=== PATIENT | female | born 2000 | race Caucasian/White ===

== ENCOUNTER 2020-08-12 23:12 | Emergency (ER) | payer SELFPAY ==
--- NOTE | 2020-08-13 00:14 | EDM.PDOC ---
ED HPI GENERAL MEDICAL PROBLEM - General Chief Complaint: CORE MOUNTER Problem Stated Complaint: 11 WEEKS PREG AND BLEEDING Time Seen by Provider: 08/13/20 00:13 - History of Present Illness INITIAL COMMENTS - FREE TEXT/NARRATIVE: 20-year-old female who is developed some spotting today. Around 5:00 this evening when the patient wiped she noticed some blood on it this happened again around 8:00. She is not sure if it is vaginal or coming in her urine. Patient believes she is about 11 weeks she has not had care yet. She is not had any fevers or chills no burning or frequency with urination. She is a 1 para 0. She has some lower abdominal pressure but no cramping. Lower Abdomen Pain Score (Numeric/FACES): 2 - Related Data Allergies Allergy/AdvReac Type Severity Reaction Status Date / Time Penicillins Allergy Hives Verified 08/12/20 23:26 sulfamethoxazole Allergy Hives Verified 08/12/20 23:26 [From Bactrim] trimethoprim [From Bactrim] Allergy Hives Verified 08/12/20 23:26 Home Meds: Home Meds . [No Known Home Meds] 08/12/20 [History] Past Medical History - Past Health History Medical/Surgical History: Denies Medical/Surgical History Respiratory History: Reports: Asthma CORE MOUNTER History: Reports: Other CORE MOUNTER History: Social & Family History - Tobacco Use Tobacco Use Status *Q: Unknown Ever Used Tobacco ED ROS GENERAL - Review of Systems Review Of Systems: See Below Constitutional: Reports: No Symptoms Respiratory: Reports: No Symptoms Cardiovascular: Reports: No Symptoms GI/Abdominal: Reports: Abdominal Pain (Lower abdominal pressure). Denies: Constipation, Diarrhea, Nausea, Vomiting : Reports: No Symptoms, Other (She has some bleeding is unclear from where) Musculoskeletal: Reports: No Symptoms ED EXAM, GENERAL - Physical Exam Exam: See Below Exam Limited By: No Limitations General Appearance: Alert, No Apparent Distress Head: Atraumatic, Normocephalic Neck: Normal Inspection, Supple, Non-Tender, Full Range of Motion Respiratory/Chest: No Respiratory Distress, Lungs Clear, Normal Breath Sounds Cardiovascular: Regular Rate, Rhythm, No Edema, No Murmur GI/Abdominal: Normal Bowel Sounds, Soft, Non-Tender, Other (I did not find heart tones.) (Female) Exam: Normal External Exam, Normal Speculum Exam, Normal Bimanual Exam, Other (After careful exam I cannot find any evidence of bleeding) Course - Vital Signs Last Recorded V/S: Last Vital Signs Temp 36.6 C 08/12/20 23:26 Pulse 84 08/12/20 23:26 Resp 15 08/12/20 23:26 BP 128/86 08/12/20 23:26 Pulse Ox 100 08/12/20 23:26 - Orders/Labs/Meds Orders: Active Orders 24 hr Category Date Time Status Pelvic Exam, Set Up [RC] ASDIRECTED Care 08/13/20 00:46 Active OB 1st Tri Sgl 1st Gest [US] Stat Exams 08/13/20 01:05 Taken PATIENT RETYPE [BBK] Routine Lab 08/13/20 01:22 Ordered Labs: Laboratory Tests 08/13/20 08/13/20 08/13/20 Range/Units 00:28 00:28 00:28 WBC 6.87 (3.98-10.04) K/mm3 RBC 4.07 (3.98-5.22) M/mm3 Hgb 11.5 (11.2-15.7) gm/dl Hct 34.1 (34.1-44.9) % MCV 83.8 (79.4-94.8) fl MCH 28.3 (25.6-32.2) pg MCHC 33.7 (32.2-35.5) g/dl RDW Std Deviation 40.6 (36.4-46.3) fL Plt Count 258 (182-369) K/mm3 MPV 10.1 (9.4-12.3) fl Neut % (Auto) 65.1 (34.0-71.1) % Lymph % (Auto) 24.0 (19.3-51.7) % [place] % (Auto) 9.6 (4.7-12.5) % Eos % (Auto) 0.9 (0.7-5.8) Baso % (Auto) 0.3 (0.1-1.2) % Neut # (Auto) 4.47 (1.56-6.13) K/mm3 Lymph # (Auto) 1.65 (1.18-3.74) K/mm3 [place] # (Auto) 0.66 H (0.24-0.36) K/mm3 Eos # (Auto) 0.06 (0.04-0.36) K/mm3 Baso # (Auto) 0.02 (0.01-0.08) K/mm3 HCG, Qual Positive H (NEGATIVE) HCG, Quant mIU/mL Urine Color (Yellow) Urine Appearance (Clear) Urine pH (5.0-8.0) Ur Specific [place] (1.005-1.030) Urine Protein (Negative) Urine Glucose (UA) (Negative) Urine Ketones (Negative) Urine Occult Blood (Negative) Urine Nitrite (Negative) Urine Bilirubin (Negative) Urine Urobilinogen (0.2-1.0) Ur Leukocyte Esterase (Negative) Urine RBC (0-5) /hpf Urine WBC (0-5) /hpf Ur Squamous Epith Cells (0-5) /hpf Urine Bacteria (FEW) /hpf Urine Mucus (FEW) /hpf Blood Type A POSITIVE Gel Antibody Screen Negative 08/13/20 08/13/20 Range/Units 00:28 01:03 WBC (3.98-10.04) K/mm3 RBC (3.98-5.22) M/mm3 Hgb (11.2-15.7) gm/dl Hct (34.1-44.9) % MCV (79.4-94.8) fl MCH (25.6-32.2) pg MCHC (32.2-35.5) g/dl RDW Std Deviation (36.4-46.3) fL Plt Count (182-369) K/mm3 MPV (9.4-12.3) fl Neut % (Auto) (34.0-71.1) % Lymph % (Auto) (19.3-51.7) % [place] % (Auto) (4.7-12.5) % Eos % (Auto) (0.7-5.8) Baso % (Auto) (0.1-1.2) % Neut # (Auto) (1.56-6.13) K/mm3 Lymph # (Auto) (1.18-3.74) K/mm3 [place] # (Auto) (0.24-0.36) K/mm3 Eos # (Auto) (0.04-0.36) K/mm3 Baso # (Auto) (0.01-0.08) K/mm3 HCG, Qual (NEGATIVE) HCG, Quant 836493.0 mIU/mL Urine Color Yellow (Yellow) Urine Appearance Clear (Clear) Urine pH 6.0 (5.0-8.0) Ur Specific [place] > or = 1.030 (1.005-1.030) Urine Protein 1+ H (Negative) Urine Glucose (UA) Negative (Negative) Urine Ketones 3+ H (Negative) Urine Occult Blood Negative (Negative) Urine Nitrite Negative (Negative) Urine Bilirubin Negative (Negative) Urine Urobilinogen 1.0 (0.2-1.0) Ur Leukocyte Esterase Negative (Negative) Urine RBC Not seen (0-5) /hpf Urine WBC Not seen (0-5) /hpf Ur Squamous Epith Cells 0-5 (0-5) /hpf Urine Bacteria Few (FEW) /hpf Urine Mucus Many H (FEW) /hpf Blood Type Gel Antibody Screen - Re-Assessments/Exams Free Text/Narrative Re-Assessment/Exam: 08/13/20 01:04 Pelvic examination shows no evidence of any bleeding we will go ahead and check an ultrasound awaiting quantitative hCG 08/13/20 03:10 Ultrasound shows a single live intrauterine gestation with a heart rate of 161 gestational age 10 weeks 4 days with a due date of 1222. There is a subchorionic hemorrhage that measures 1.4 x 0.7 x 0.7 cm. Blood type is A positive Departure - Departure Time of Disposition: 03:12 Disposition: Home, Self-Care 01 Clinical Impression: First trimester bleeding - Discharge Information Referrals: PCP,Not In Area [Primary Care Provider] - Steven Kendall MD [Physician] - Forms: ED Department Discharge Additional Instructions: Return to the emergency room with any questions problems or worsening symptoms. No heavy lifting or exertion no intercourse. Do not lift anything over 10 pounds. Allow yourself to get plenty of rest. Drink plenty of fluids. [facility] the hospital this next week for recheck. Sepsis Event Note (ED) - Evaluation Sepsis Screening Result: No Definite Risk - Focused Exam Vital Signs: Vital Signs Temp Pulse Resp BP Pulse Ox 08/12/20 23:26 36.6 C 84 15 128/86 100 - My Orders Last 24 Hours: My Active Orders 08/13/20 00:46 Pelvic Exam, Set Up [RC] ASDIRECTED 08/13/20 01:05 OB 1st Tri Sgl 1st Gest [US] Stat 08/13/20 01:22 PATIENT RETYPE [BBK] Routine - Assessment/Plan Last 24 Hours: My Active Orders 08/13/20 00:46 Pelvic Exam, Set Up [RC] ASDIRECTED 08/13/20 01:05 OB 1st Tri Sgl 1st Gest [US] Stat 08/13/20 01:22 PATIENT RETYPE [BBK] Routine
--- NOTE | 2020-08-13 18:24 | US ---
First trimester obstetrical ultrasound: Multiple real-time images were obtained transabdominally. Comparison: No prior obstetrical imaging is available. Dates: Current ultrasound: BELINDA 01/05/21, gestational age of 10 weeks 4 days Single intrauterine gestational sac is seen. Embryo is noted within this gestational sac. Small subchorionic hemorrhage is noted. Right and left maternal ovaries appear within normal limits. Measurements: Orwin-rump length: 3.64 cm - 10 weeks 4 days Heart rate: 161 bpm Impression: 1. Single intrauterine gestation. Dates as noted above. 2. Minimal subchorionic hemorrhage. 3. No other acute abnormality is appreciated. Diagnostic code #2 I agree with preliminary report from [facility], finalized on 08/13/20, 3:22 AM CDT, code 1
== END 2020-08-13 03:30 | disposition home or self-care (01) ==
LOC: JD.ED 23:12
DX: O20.9 Hemorrhage in early pregnancy, unspecified (principal); Z88.0 Allergy status to penicillin; Z88.1 Allergy status to other antibiotic agents; Z3A.11 11 weeks gestation of pregnancy
CPT/HCPCS: 36415; 76801; 76801-26; 81001; 84702; 84703; 85025; 86850; 86900; 86901; 99283; 99284-25

== ENCOUNTER 2020-10-07 15:38 | Emergency (ER) | payer SELFPAY ==
[2020-10-07] MEDS ORDERED: Acetaminophen 325 MG Tab PO ONE (16:22)
--- NOTE | 2020-10-07 17:53 | EDM.PDOC ---
ED HPI GENERAL MEDICAL PROBLEM - General Chief Complaint: Abdominal Pain Stated Complaint: RT SIDE PAIN IN LEGS AND BACK, 19 WKS Time Seen by Provider: 10/07/20 15:55 Source of Information: Reports: Patient, RN Notes Reviewed - History of Present Illness INITIAL COMMENTS - FREE TEXT/NARRATIVE: 20 yr old female comes in with R back and flank pain with some radiation down the R leg. She is at about 19 weeks. No known injury. Has had some vomiting off and on, otherwise has been going OK. No voiding sx. Right Lower Abdomen Pain Score (Numeric/FACES): 8 - Related Data Allergies Allergy/AdvReac Type Severity Reaction Status Date / Time azithromycin Allergy Severe Anaphylactic Verified 10/07/20 15:55 Shock Penicillins Allergy Severe Hives Verified 10/07/20 15:55 sulfamethoxazole Allergy Severe Hives Verified 10/07/20 15:55 [From Bactrim] trimethoprim [From Bactrim] Allergy Severe Hives Verified 10/07/20 15:55 Home Meds: Home Meds ondansetron HCL [Zofran] 4 mg PO Q6H PRN 10/07/20 [History] Past Medical History - Past Health History Medical/Surgical History: Denies Medical/Surgical History Respiratory History: Reports: Asthma SYSTEM ARCHITECT History: Reports: Other SYSTEM ARCHITECT History: Endocrine/Metabolic History: Reports: Obesity/BMI 30+ Social & Family History - Tobacco Use Tobacco Use Status *Q: Never Tobacco User - Caffeine Use Caffeine Use: Reports: None - Recreational Drug Use Recreational Drug Use: No ED ROS GENERAL - Review of Systems Review Of Systems: See Below Constitutional: Denies: Fever, Chills HEENT: Reports: No Symptoms Respiratory: Reports: No Symptoms Cardiovascular: Reports: No Symptoms GI/Abdominal: Reports: Nausea, Vomiting Musculoskeletal: Reports: Back Pain, Leg Pain Skin: Reports: No Symptoms Neurological: Denies: Numbness, Tingling ED EXAM - Physical Exam Exam: See Below General Appearance: Alert, Mild Distress Throat/Mouth: Normal Inspection Respiratory/Chest: No Respiratory Distress, Lungs Clear, Normal Breath Sounds Cardiovascular: Regular Rate, Rhythm GI/Abdominal Exam: Soft, Non-Tender. No: Guarding Heart Tones: Present Heart Tones per Min: 144 Back Exam: Other (mild tenderness R low back). No: CVA Tenderness (L), CVA Tenderness (R) Extremities: Other (RLE not swollen). No: Pedal Edema, Leg Pain, Increased Warmth, Redness Neurological: Alert, Oriented, No Motor/Sensory Deficits Skin Exam: Warm, Dry, Normal Color Course - Vital Signs Last Recorded V/S: Last Vital Signs Temp 96.7 F L 10/07/20 15:51 Pulse 86 10/07/20 15:51 Resp 16 10/07/20 15:51 BP 108/76 10/07/20 15:51 Pulse Ox 100 10/07/20 15:51 - Orders/Labs/Meds Labs: Laboratory Tests 10/07/20 10/07/20 Range/Units 16:40 17:25 WBC 6.76 (3.98-10.04) K/mm3 RBC 4.00 (3.98-5.22) M/mm3 Hgb 11.2 (11.2-15.7) gm/dl Hct 34.2 (34.1-44.9) % MCV 85.5 (79.4-94.8) fl MCH 28.0 (25.6-32.2) pg MCHC 32.7 (32.2-35.5) g/dl RDW Std Deviation 43.4 (36.4-46.3) fL Plt Count 270 (182-369) K/mm3 MPV 9.9 (9.4-12.3) fl Neut % (Auto) 71.3 H (34.0-71.1) % Lymph % (Auto) 18.9 L (19.3-51.7) % [place] % (Auto) 8.1 (4.7-12.5) % Eos % (Auto) 1.5 (0.7-5.8) Baso % (Auto) 0.1 (0.1-1.2) % Neut # (Auto) 4.81 (1.56-6.13) K/mm3 Lymph # (Auto) 1.28 (1.18-3.74) K/mm3 [place] # (Auto) 0.55 H (0.24-0.36) K/mm3 Eos # (Auto) 0.10 (0.04-0.36) K/mm3 Baso # (Auto) 0.01 (0.01-0.08) K/mm3 Urine Color Yellow (Yellow) Urine Appearance Clear (Clear) Urine pH 7.0 (5.0-8.0) Ur Specific [place] 1.025 (1.005-1.030) Urine Protein Negative (Negative) Urine Glucose (UA) Negative (Negative) Urine Ketones Negative (Negative) Urine Occult Blood Negative (Negative) Urine Nitrite Negative (Negative) Urine Bilirubin Negative (Negative) Urine Urobilinogen 0.2 (0.2-1.0) Ur Leukocyte Esterase Negative (Negative) Meds: Medications Discontinued Medications Generic Name Dose Route Start Last Admin Trade Name Shahzad PRN Reason Stop Dose Admin Acetaminophen 325 mg 10/07/20 16:22 10/07/20 16:34 Acetaminophen 325 Mg Tab PO 10/07/20 16:23 81.25 mg NOW ONE Administration - Re-Assessments/Exams Free Text/Narrative Re-Assessment/Exam: 10/07/20 17:53 WBC nl, UA nl. She was worried about tylenol allergy due to waking up feeling throat tightness about 6 yrs ago after taking tylneol for an injury. Has never taken it since that time. Usually takes aleve for discomfort but now with her that is not going to be a good idea. Departure - Departure Time of Disposition: 18:03 Disposition: Home, Self-Care 01 Condition: Fair Clinical Impression: Second trimester Back pain Qualifiers: Back pain location: low back pain Chronicity: acute Back pain laterality: right Sciatica presence: without sciatica Qualified Code(s): M54.5 - Low back pain - Discharge Information Instructions: Back Pain in Referrals: Rosette Ellington MD [Primary Care Provider] - Forms: ED Department Discharge Additional Instructions: Gradually increase your dose of tylenol as discussed. Start with a half 500 mg tablet 2 to 3 times daily and than increase to 500 mg 3 to 4 times daily as needed. Altenate ice and heat as needed. Avoid heavy lifting for now. See Dr Ellington in about 2 weeks as planned. You may see one of the other providers as needed if back pain not resolving as expected. Sepsis Event Note (ED) - Evaluation Sepsis Screening Result: No Definite Risk - Focused Exam Vital Signs: Vital Signs Temp Pulse Resp BP Pulse Ox 10/07/20 15:51 96.7 F L 86 16 108/76 100
== END 2020-10-07 18:20 | disposition home or self-care (01) ==
LOC: JD.ED 15:38
DX: O99.891 Other specified diseases and conditions complicating pregnancy (principal); O99.212 Obesity complicating pregnancy, second trimester; M54.5 Low back pain; Z88.0 Allergy status to penicillin; Z88.1 Allergy status to other antibiotic agents; Z3A.19 19 weeks gestation of pregnancy
CPT/HCPCS: 36415; 81003; 85025; 99284; A9270; 99283

== ENCOUNTER 2020-10-13 11:51 | Emergency (ER) | payer SELFPAY ==
--- NOTE | 2020-10-13 14:44 | EDM.PDOC ---
ED HPI GENERAL MEDICAL PROBLEM - General Chief Complaint: Respiratory Problem Stated Complaint: SOB/19 WKS PG Time Seen by Provider: 10/13/20 12:13 Source of Information: Reports: Patient History Limitations: Reports: No Limitations - History of Present Illness INITIAL COMMENTS - FREE TEXT/NARRATIVE: The patient presents with a sore throat and trouble breathing. She said the s ore throat started yesterday. Today she was at work and had trouble breathing. She is anxious when she came in. She does have a slight cough. She is 19 weeks gestation. She has no cramping, vaginal bleeding or discharge. Onset: Gradual Duration: Day(s): Location: Reports: Other Quality: Reports: Sharp Severity: Moderate Improves with: Reports: None Worsens with: Reports: None Associated Symptoms: Reports: Cough. Denies: Chest Pain, Fever/Chills, Headaches, Nausea/Vomiting, Shortness of Breath Throat Pain Score (Numeric/FACES): 8 - Related Data Allergies Allergy/AdvReac Type Severity Reaction Status Date / Time azithromycin Allergy Severe Anaphylactic Verified 10/13/20 12:15 Shock Penicillins Allergy Intermediate Hives Verified 10/13/20 12:15 sulfamethoxazole Allergy Intermediate Hives Verified 10/13/20 12:15 [From Bactrim] trimethoprim [From Bactrim] Allergy Intermediate Hives Verified 10/13/20 12:15 Home Meds: Home Meds ondansetron HCL [Zofran] 4 mg PO Q6H PRN 10/07/20 [History] Past Medical History - Past Health History Medical/Surgical History: Denies Medical/Surgical History Respiratory History: Reports: Asthma 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 Denies: Shortness of Breath Cardiovascular: Reports: No Symptoms Endocrine: Reports: No Symptoms GI/Abdominal: Reports: No Symptoms : Reports: No Symptoms Musculoskeletal: Reports: No Symptoms ED EXAM, GENERAL - Physical Exam Exam: See Below Exam Limited By: No Limitations General Appearance: Alert, No Apparent Distress Ears: Normal External Exam Nose: Normal Inspection Throat/Mouth: Other (Erythema and edema to the oropharynx) Head: Atraumatic, Normocephalic Neck: Normal Inspection Respiratory/Chest: No Respiratory Distress, Lungs Clear, Normal Breath Sounds Cardiovascular: Regular Rate, Rhythm, No Edema, No Murmur GI/Abdominal: Soft, Non-Tender, No Organomegaly, No Mass Back Exam: Normal Inspection Extremities: Normal Inspection Course - Vital Signs Last Recorded V/S: Last Vital Signs Temp 98.3 F 10/13/20 12:12 Pulse 97 10/13/20 12:12 Resp 28 H 10/13/20 12:12 BP 111/79 10/13/20 12:12 Pulse Ox 100 10/13/20 12:12 - Orders/Labs/Meds Labs: Laboratory Tests 10/13/20 Range/Units 12:10 Group A Strep (PCR) Not detected (NOT DETECT) - Re-Assessments/Exams Free Text/Narrative Re-Assessment/Exam: 10/13/20 14:43 I ordered a rapid strep and it was negative. I did want to check her for COVID but she refused. Departure - Departure Time of Disposition: 14:45 Disposition: Home, Self-Care 01 Condition: Good Clinical Impression: Viral pharyngitis, Viral URI - Discharge Information *PRESCRIPTION DRUG MONITORING PROGRAM REVIEWED*: Not Applicable *COPY OF PRESCRIPTION DRUG MONITORING REPORT IN PATIENT MELISSA: Not Applicable Referrals: Rosette Ellington MD [Primary Care Provider] - 1 Week Forms: ED Department Discharge, ED Return to Work/School Form Additional Instructions: Drink plenty of fluids. Take tylenol as needed for fever or pain. Follow up with Dr Ellington within a week. Please return if you are worse. Sepsis Event Note (ED) - Evaluation Sepsis Screening Result: Possible Sepsis Risk - Focused Exam Vital Signs: Vital Signs Temp Pulse Resp BP Pulse Ox 10/13/20 12:12 98.3 F 97 28 H 111/79 100
== END 2020-10-13 14:50 | disposition home or self-care (01) ==
LOC: JD.ED 11:51
DX: O99.512 Diseases of the respiratory system complicating pregnancy, second trimester (principal); O99.212 Obesity complicating pregnancy, second trimester; J02.8 Acute pharyngitis due to other specified organisms; Z88.1 Allergy status to other antibiotic agents; Z88.0 Allergy status to penicillin; Z3A.19 19 weeks gestation of pregnancy
CPT/HCPCS: 87651-QW; 99282; 99283

== ENCOUNTER 2020-12-01 20:03 | Emergency (ER) | payer BC, OTHER ==
--- NOTE | 2020-12-01 20:47 | EDM.PDOC ---
ED HPI GENERAL MEDICAL PROBLEM - General Chief Complaint: Upper Extremity Injury/Pain Stated Complaint: TRIPPED & INJURED RIGHT WRIST AT WORK Time Seen by Provider: 12/01/20 20:19 Source of Information: Reports: Patient History Limitations: Reports: No Limitations - History of Present Illness INITIAL COMMENTS - FREE TEXT/NARRATIVE: Patient is a 20-year-old female who is 26 weeks who while at work today was bumped into and she caught herself falling injuring her right wrist. Patient denies any other injuries and no other complaints. She has never previously injured the wrist and taken nothing for her pain currently. Onset: Today, Sudden Duration: Constant Location: Reports: Upper Extremity, Right Quality: Reports: Ache Severity: Moderate Improves with: Reports: Cold Therapy Worsens with: Reports: Movement Context: Reports: Trauma Right Wrist Pain Score (Numeric/FACES): 5 - Related Data Allergies Allergy/AdvReac Type Severity Reaction Status Date / Time azithromycin Allergy Severe Anaphylactic Verified 12/01/20 20:31 Shock Penicillins Allergy Intermediate Hives Verified 12/01/20 20:31 sulfamethoxazole Allergy Intermediate Hives Verified 12/01/20 20:31 [From Bactrim] trimethoprim [From Bactrim] Allergy Intermediate Hives Verified 12/01/20 20:31 Home Meds: Home Meds . 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 Constitutional: Reports: No Symptoms Respiratory: Reports: No Symptoms Cardiovascular: Reports: No Symptoms Musculoskeletal: Reports: Arm Pain Skin: Reports: No Symptoms Neurological: Reports: No Symptoms ED EXAM, GENERAL - Physical Exam Exam: See Below Exam Limited By: No Limitations General Appearance: Alert, No Apparent Distress Head: Atraumatic Neck: Supple Respiratory/Chest: No Respiratory Distress GI/Abdominal: Non-Tender Extremities: Joint Swelling, Other (Pain and swelling right wrist consistent with fracture.) Neurological: Alert, Oriented Skin Exam: Warm, Dry Lymphatic: No Adenopathy Course - Vital Signs Text/Narrative:: X-ray of her right wrist shows a fracture through the hamate bone. Patient will be put in a splint and given some [place] as needed for pain otherwise she can just take Tylenol. She will call orthopedic provider tomorrow or on Friday to make an appointment to be casted. She is to use elevation ice as long as wrist is swollen. Last Recorded V/S: Last Vital Signs Temp 97.4 F 12/01/20 20:29 Pulse 89 12/01/20 20:29 Resp 20 12/01/20 20:29 BP 106/80 12/01/20 20:29 Pulse Ox 98 12/01/20 20:29 - Orders/Labs/Meds Orders: Active Orders 24 hr Category Date Time Status Splinting [RC] ASDIRECTED Care 12/01/20 21:43 Ordered Wrist Comp Min 3V Rt [CR] Stat Exams 12/01/20 20:43 Taken Departure - Departure Time of Disposition: 21:45 Disposition: Home, Self-Care 01 Condition: Good Clinical Impression: Closed hamate fracture - Discharge Information *PRESCRIPTION DRUG MONITORING PROGRAM REVIEWED*: No Instructions: Wrist Fracture Treated With Immobilization, [id number] Referrals: Rosette Ellington MD [Primary Care Provider] - Jason Nava MD [Physician] - Forms: ED Department Discharge, ED Return to Work/School Form Additional Instructions: Elevation and splint until seen by orthopedic provider for casting. [place] if needed otherwise Tylenol for pain. Return to ER symptoms are worse. Sepsis Event Note (ED) - Focused Exam Vital Signs: Vital Signs Temp Pulse Resp BP Pulse Ox 12/01/20 20:29 97.4 F 89 20 106/80 98 - My Orders Last 24 Hours: My Active Orders 12/01/20 20:43 Wrist Comp Min 3V Rt [CR] Stat 12/01/20 21:43 Splinting [RC] ASDIRECTED - Assessment/Plan Last 24 Hours: My Active Orders 12/01/20 20:43 Wrist Comp Min 3V Rt [CR] Stat 12/01/20 21:43 Splinting [RC] ASDIRECTED
--- NOTE | 2020-12-02 07:42 | CR ---
Right wrist: 4 views centered to the right wrist were obtained. Comparison: No previous wrist study is available. Joint spaces within the right wrist are preserved. No fracture, dislocation or other bony abnormality is seen. Impression: 1. No acute abnormality is appreciated on right wrist exam. Diagnostic code #1
== END 2020-12-01 22:05 | disposition home or self-care (01) ==
LOC: JD.ED 20:03
DX: O9A.23 Injury, poisoning and certain other consequences of external causes complicating the puerperium (principal); S62.141A Displaced fracture of body of hamate [unciform] bone, right wrist, initial encounter for closed fracture; Z88.1 Allergy status to other antibiotic agents; Z88.0 Allergy status to penicillin; Z3A.26 26 weeks gestation of pregnancy; Y99.0 Civilian activity done for income or pay; W18.09XA Striking against other object with subsequent fall, initial encounter
CPT/HCPCS: 73110-26-RT; 73110-RT; 99283; 99283-25

== ENCOUNTER 2021-02-16 06:21 | Inpatient (IN) | payer BC ==
[2021-02-16] MEDS ORDERED: Calcium Carbonate 500 MG Tab.Chew PO PRN (07:54)
[2021-02-16] MEDS ORDERED: Ondansetron 4 MG/2 ML SDV IVPUSH PRN (07:54)
[2021-02-16] MEDS ORDERED: Nalbuphine 10 MG/1 ML Vial IVPUSH PRN (07:54)
[2021-02-16] MEDS ORDERED: Sodium Chloride 0.9% 10 ML Syringe FLUSH PRN (07:54)
[2021-02-16] MEDS ORDERED: Oxytocin/Lactated Ringers 10 UNIT/1,000 ML BAG IV SCH ×3 (08:00→23:10)
--- NOTE | 2021-02-16 09:13 | PCM.LDHP ---
<RakelCris shoemaker L - Last Filed: 02/16/21 09:43> L&D History of Present Illness - General Date of Service: 02/16/21 Admit Problem/Dx: Patient Status Order with Admit Dx/Problem 02/16/21 06:28 Patient Status [ADT] Routine 02/16/21 07:54 Patient Status [ADT] Routine Admission Diagnosis/Problem Admission Diagnosis/Problem Source of Information: Patient History Limitations: Reports: No Limitations - History of Present Illness Introduction:: Jina Kaplan is a 20yo white female at 37 2/7 weeks with an BELINDA of 03/07/2021 based on ultrasound admitted on the a.m. of 02/16/2021 for SROM and in early labor. HPI: Jina Kaplan is a 20yo white female at 37 2/7 weeks with an BELINDA of 03/07/2021 based on ultrasound admitted on the a.m. of 02/16/2021 for SROM and in early labor. She felt multiple gushes followed by leakage of clear fluid at 0555 this morning which prompted presentation to L&D. She reports no contractions at that time, but is starting to have irregularly timed contractio ns. She is GBS- and denies any other concerns today. 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 Periods were regular prior to conception. Her due date of 03/07/2021 is based on ultrasound on 08/13/2020. course: Patient was initially seen with this at 11 2/7 weeks on 08/18/2020 and was seen on a regular basis throughout the . Fundal height growth has been appropriate throughout the . Weight has been 197lbs to 214lbs for an increase of 17lbs for the . She received Tdap and influenza immunizations on 01/18/2021. She refused COVID-19 vaccination. First trimester labs showed A+ blood type with negative antibodies, Hgb 13.1g/dL, platelets 268,000. She is rubella immune. Urine culture was negative. HBsAg, HCV, HIV, RPR, gonorrhea, chlamydia all negative. Second trimester labs showed A+ blood type with negative antibodies, Hgb 11.0g/dL, platelets 282,000. 1hr glucose 73mg/dL. RPR on 11/14/2020 was nonreactive. GBS-. Allergies: Azithromycin - severe, Penicillins - severe, trimethoprim- sulfamethoxazole - severe, avocado Medications: Zofran 4mg q6hr PRN, vitamin PMH: She denies any medical problems. Surgical Hx: She denies any surgical history. She had her first period at 12yo and has had regular periods prior to conception. She denies prior . FHx: No pertinent family history. SHx: Denies drug, alcohol and tobacco use. Boyfriend and FOB is Filipe. 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 ROS: In general patient is feeling well with mild pain with contractions. Reports good activity. HEENT: denies Breast: denies Pulm: denies SOB CV: denies chest pain GI: denies abdominal pain, nausea, vomiting, diarrhea, constipation : denies Neuro: denies headache Psych: denies depression, anxiety, mood changes Skin: denies PE: In general, patient is a well-nourished, well-developed, pleasant female in no acute distress. 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 Jina Kaplan is a 20yo white female at 37 2/7 weeks with an BELINDA of 03/07 based on ultrasound admitted on the a.m. of 02/16/2021 for SROM and in early labor. 2. GBS -. RPR is nonreactive. Rubella immune. Received Tdap and flu vaccines, not COVID-19. 3. Does not desire epidural in labor 4. Plans to breastfeed Plan: 1. Proceed with with routine labor care 2. Continuous monitoring of heart tones 3. No epidural in labor 4. Support plans to breastfeed KB MS3 - Related Data Allergies/Adverse Reactions: Allergies Allergy/AdvReac Type Severity Reaction Status Date / Time azithromycin Allergy Severe Anaphylactic Verified 01/30/21 21:16 Shock Penicillins Allergy Intermediate Hives Verified 11/16/21 21:16 sulfamethoxazole Allergy Intermediate Hives Verified 01/30/21 21:16 [From Bactrim] trimethoprim [From Bactrim] Allergy Intermediate Hives Verified 01/30/21 21:16 Home Medications: Home Meds Ondansetron [Zofran ODT] 4 mg PO Q6H PRN #30 tab.dis 01/30/21 [Rx] No122/Iron/Folic Acid [ Multi Tablet] 1 each PO DAILY 01/30/21 [History] Past Medical History - Past Health History Medical/Surgical History: Denies Medical/Surgical History Respiratory History: Reports: 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 L&D Exam - Exam Exam: See Below - Vital Signs Weight: 96.388 kg - Exam General: Alert, Oriented HEENT: Conjunctiva Clear, EOMI, Hearing Intact, Mucosa Moist & [place] Lungs: Clear to Auscultation, Normal Respiratory Effort Cardiovascular: Regular Rate, Regular Rhythm, Normal S1, Normal S2 GI/Abdominal Exam: Normal Bowel Sounds, Soft, Non-Tender Rectal Exam: Deferred Genitourinary: Deferred Back Exam: Normal Inspection, Full Range of Motion Extremities: Normal Inspection, Normal Range of Motion, Non-Tender, No Pedal Edema, Normal Capillary Refill Skin: Warm, Dry, Intact Neurological: Cranial Nerves Intact Psychiatric: Alert, Normal Affect, Normal Mood - Patient Data Lab Results Last 24 hrs: Laboratory Results - last 24 hr 02/16/21 02/16/21 02/16/21 Range/Units 06:40 08:06 08:06 WBC 8.45 (3.98-10.04) K/mm3 RBC 3.97 L (3.98-5.22) M/mm3 Hgb 11.2 (11.2-15.7) gm/dl Hct 34.2 (34.1-44.9) % MCV 86.1 (79.4-94.8) fl MCH 28.2 (25.6-32.2) pg MCHC 32.7 (32.2-35.5) g/dl RDW Std Deviation 41.8 (36.4-46.3) fL Plt Count 263 (182-369) K/mm3 MPV 9.8 (9.4-12.3) fl Neut % (Auto) 75.8 H (34.0-71.1) % Lymph % (Auto) 15.7 L (19.3-51.7) % Crisp % (Auto) 7.2 (4.7-12.5) % Eos % (Auto) 1.1 (0.7-5.8) Baso % (Auto) 0.2 (0.1-1.2) % Neut # (Auto) 6.40 H (1.56-6.13) K/mm3 Lymph # (Auto) 1.33 (1.18-3.74) K/mm3 Crisp # (Auto) 0.61 H (0.24-0.36) K/mm3 Eos # (Auto) 0.09 (0.04-0.36) K/mm3 Baso # (Auto) 0.02 (0.01-0.08) K/mm3 Membrane Rupture Positive H Blood Type A POSITIVE Result Diagrams: 02/16/21 08:06 - Problem List (1) 37 weeks gestation of SNOMED Code(s): 61675376 ICD Code: Z3A.37 - 37 WEEKS GESTATION OF Status: Acute Priority: High Current Visit: Yes Problem List Initiated/Reviewed/Updated: Yes Orders Last 24hrs: Active Orders 24 hr Category Date Time Status Patient Status [ADT] Routine ADT 02/16/21 07:54 Active Activity as Tolerated [RC] PFP Care 02/16/21 07:54 Active Communication Order [RC] ASDIRECTED Care 02/16/21 07:54 Active Heart Tones [RC] ASDIRECTED Care 02/16/21 07:55 Active Non Stress Test [RC] PER UNIT ROUTINE Care 02/16/21 06:28 Active Notify Provider [RC] PFP Care 02/16/21 07:54 Active Notify Provider [RC] PRN Care 02/16/21 07:54 Active Peripheral IV Care [RC] . DIRECTED Care 02/16/21 07:55 Active Pump Management, Intrathecal [RC] ASDIRECTED Care 02/16/21 07:55 Active Urinary Catheter Assessment [RC] ASDIRECTED Care 02/16/21 07:54 Active Vaginal Exam [RC] PRN Care 02/16/21 06:28 Active Vital Signs [RC] PER UNIT ROUTINE Care 02/16/21 06:28 Active Regular Diet [DIET] Diet 02/16/21 Breakfast Active RAPID PLASMA REAGIN,RPR [CHEM] Routine Lab 02/16/21 08:06 Received TYPE AND SCREEN [BBK] Stat Lab 02/16/21 08:06 Results Calcium Carbonate [Tums] Med 02/16/21 07:54 Active 1,000 mg PO Q2H PRN Lactated Ringers [Ringers, Lactated] 1,000 ml Med 02/16/21 08:00 Active IV ASDIRECTED Nalbuphine [Nubain] Med 02/16/21 07:54 Active 10 mg IVPUSH Q2H PRN Ondansetron [Zofran] Med 02/16/21 07:54 Active 4 mg IVPUSH Q4H PRN Oxytocin/Lactated Ringers [Pitocin in LR 10 Units/1,000 Med 02/16/21 08:00 Active ML] 10 unit in 1,000 ml IV .CONTINUOUS Oxytocin/Lactated Ringers [Pitocin in LR 10 Units/1,000 Med 02/16/21 08:00 Active ML] 10 unit in 1,000 ml IV TITRATE Sodium Chloride 0.9% [Saline Flush] Med 02/16/21 07:54 Active 10 ml FLUSH ASDIRECTED PRN Electronic Heart Tones Ext w TOCO [WOMSER] Oth 02/16/21 07:54 Ordered Routine Electronic Heart Tones Internal [WOMSER] Per Unit Oth 02/16/21 07:54 Ordered Routine Peripheral IV Insertion Adult [OM.PC] Routine Oth 02/16/21 07:54 Ordered Resuscitation Status Routine Resus Stat 02/16/21 06:28 Ordered Medication Orders Calcium Carbonate/Glycine (Calcium Carbonate 500 Mg Tab.Chew) 1,000 mg PO Q2H PRN PRN Reason: Indigestion Lactated Ringer's (Ringers, Lactated) 1,000 mls @ 100 mls/hr IV ASDIRECTED MARIANELA Oxytocin/Lactated Ringer's (Pitocin In Lr 10 Units/1,000 Ml) 10 unit in 1,000 mls @ 12 mls/hr IV TITRATE MARIANELA; Protocol Oxytocin/Lactated Ringer's (Pitocin In Lr 10 Units/1,000 Ml) 10 unit in 1,000 mls @ 500 mls/hr IV .CONTINUOUS MARIANELA Nalbuphine HCl (Nalbuphine 10 Mg/1 Ml Vial) 10 mg IVPUSH Q2H PRN PRN Reason: Pain Ondansetron HCl (Ondansetron 4 Mg/2 Ml Sdv) 4 mg IVPUSH Q4H PRN PRN Reason: Nausea/Vomiting Sodium Chloride (Sodium Chloride 0.9% 10 Ml Syringe) 10 ml FLUSH ASDIRECTED PRN PRN Reason: Keep Vein Open Assessment/Plan Comment:: Assessment: 1. Jina Kaplan is a 20yo white female at 37 2/7 weeks with an BELINDA of 03/07/2021 based on ultrasound admitted on the a.m. of 02/16/2021 for SROM and in early labor. 2. GBS -. RPR is nonreactive. Rubella immune. Received Tdap and flu vaccines, not COVID-19. 3. Does not desire epidural in labor 4. Plans to breastfeed Plan: 1. Proceed with with routine labor care 2. Continuous monitoring of heart tones 3. No epidural in labor 4. Support plans to breastfeed <Steven Kendall - Last Filed: 02/16/21 10:33> L&D History of Present Illness - General Admit Problem/Dx: Patient Status Order with Admit Dx/Problem 02/16/21 06:28 Patient Status [ADT] Routine 02/16/21 07:54 Patient Status [ADT] Routine Admission Diagnosis/Problem Admission Diagnosis/Problem L&D Exam - Exam Exam: See Below - OB Specific Contraction Duration (sec): 45-60 Contraction Frequency (min): 2-4 Contraction Intensity: Mild to Moderate Movement: Active Heart Tones: Present Heart Tones per Min: 135 (+15 x 15 accelerations, no decelerations) Heart Rate (FHR) Variability: Moderate (6-25 bpm) Presentation: Vertex (by bedside ultrasound) Estimated Weight: 6.5-7 pounds by Jim - Davison Score Davison Score Cervix Position: Midposition Davison Score Consistency: Soft Davison Score Effacement: >80% (80%) Davison Score Dilation: 3-4 cm (3 cm) Davison Score Infant's Station: -2 Davison Score Total: 9 - Patient Data Lab Results Last 24 hrs: Laboratory Results - last 24 hr 02/16/21 02/16/21 02/16/21 Range/Units 06:40 08:06 08:06 WBC 8.45 (3.98-10.04) K/mm3 RBC 3.97 L (3.98-5.22) M/mm3 Hgb 11.2 (11.2-15.7) gm/dl Hct 34.2 (34.1-44.9) % MCV 86.1 (79.4-94.8) fl MCH 28.2 (25.6-32.2) pg MCHC 32.7 (32.2-35.5) g/dl RDW Std Deviation 41.8 (36.4-46.3) fL Plt Count 263 (182-369) K/mm3 MPV 9.8 (9.4-12.3) fl Neut % (Auto) 75.8 H (34.0-71.1) % Lymph % (Auto) 15.7 L (19.3-51.7) % Crisp % (Auto) 7.2 (4.7-12.5) % Eos % (Auto) 1.1 (0.7-5.8) Baso % (Auto) 0.2 (0.1-1.2) % Neut # (Auto) 6.40 H (1.56-6.13) K/mm3 Lymph # (Auto) 1.33 (1.18-3.74) K/mm3 Crisp # (Auto) 0.61 H (0.24-0.36) K/mm3 Eos # (Auto) 0.09 (0.04-0.36) K/mm3 Baso # (Auto) 0.02 (0.01-0.08) K/mm3 Membrane Rupture Positive H Blood Type A POSITIVE Gel Antibody Screen Negative Result Diagrams: 02/16/21 08:06 - Problem List (1) 37 weeks gestation of SNOMED Code(s): 65125493 ICD Code: Z3A.37 - 37 WEEKS GESTATION OF Status: Acute Priority: High Current Visit: Yes Orders Last 24hrs: Active Orders 24 hr Category Date Time Status Patient Status [ADT] Routine ADT 02/16/21 07:54 Active Activity as Tolerated [RC] PFP Care 02/16/21 07:54 Active Communication Order [RC] ASDIRECTED Care 02/16/21 07:54 Active Heart Tones [RC] ASDIRECTED Care 02/16/21 07:55 Active Non Stress Test [RC] PER UNIT ROUTINE Care 02/16/21 06:28 Active Notify Provider [RC] PFP Care 02/16/21 07:54 Active Notify Provider [RC] PRN Care 02/16/21 07:54 Active Peripheral IV Care [RC] . DIRECTED Care 02/16/21 07:55 Active Pump Management, Intrathecal [RC] ASDIRECTED Care 02/16/21 07:55 Active Urinary Catheter Assessment [RC] ASDIRECTED Care 02/16/21 07:54 Active Vaginal Exam [RC] PRN Care 02/16/21 06:28 Active Vital Signs [RC] PER UNIT ROUTINE Care 02/16/21 06:28 Active Regular Diet [DIET] Diet 02/16/21 Breakfast Active RAPID PLASMA REAGIN,RPR [CHEM] Routine Lab 02/16/21 08:06 Received Calcium Carbonate [Tums] Med 02/16/21 07:54 Active 1,000 mg PO Q2H PRN Lactated Ringers [Ringers, Lactated] 1,000 ml Med 02/16/21 08:00 Active IV ASDIRECTED Nalbuphine [Nubain] Med 02/16/21 07:54 Active 10 mg IVPUSH Q2H PRN Ondansetron [Zofran] Med 02/16/21 07:54 Active 4 mg IVPUSH Q4H PRN Oxytocin/Lactated Ringers [Pitocin in LR 10 Units/1,000 Med 02/16/21 08:00 Ac tive ML] 10 unit in 1,000 ml IV .CONTINUOUS Oxytocin/Lactated Ringers [Pitocin in LR 10 Units/1,000 Med 02/16/21 08:00 Active ML] 10 unit in 1,000 ml IV TITRATE Sodium Chloride 0.9% [Saline Flush] Med 02/16/21 07:54 Active 10 ml FLUSH ASDIRECTED PRN Electronic Heart Tones Ext w TOCO [WOMSER] Oth 02/16/21 07:54 Ordered Routine Electronic Heart Tones Internal [WOMSER] Per Unit Oth 02/16/21 07:54 Ordered Routine Peripheral IV Insertion Adult [OM.PC] Routine Oth 02/16/21 07:54 Ordered Resuscitation Status Routine Resus Stat 02/16/21 06:28 Ordered Medication Orders Calcium Carbonate/Glycine (Calcium Carbonate 500 Mg Tab.Chew) 1,000 mg PO Q2H PRN PRN Reason: Indigestion Lactated Ringer's (Ringers, Lactated) 1,000 mls @ 100 mls/hr IV ASDIRECTED MARIANELA Oxytocin/Lactated Ringer's (Pitocin In Lr 10 Units/1,000 Ml) 10 unit in 1,000 mls @ 12 mls/hr IV TITRATE MARIANELA; Protocol Oxytocin/Lactated Ringer's (Pitocin In Lr 10 Units/1,000 Ml) 10 unit in 1,000 mls @ 500 mls/hr IV .CONTINUOUS MARIANELA Nalbuphine HCl (Nalbuphine 10 Mg/1 Ml Vial) 10 mg IVPUSH Q2H PRN PRN Reason: Pain Ondansetron HCl (Ondansetron 4 Mg/2 Ml Sdv) 4 mg IVPUSH Q4H PRN PRN Reason: Nausea/Vomiting Sodium Chloride (Sodium Chloride 0.9% 10 Ml Syringe) 10 ml FLUSH ASDIRECTED PRN PRN Reason: Keep Vein Open Assessment/Plan Comment:: Jina Kaplan is a 20-year-old female at 37 weeks 2 days (BELINDA 03/07/2021) by a 10-week ultrasound with spontaneous rupture of membranes with complicated by history of COVID-19 infection on 01/30/2021 and has recovered completely at this time and rubella equivocal status I have seen and evaluated the patient with the medical student and agree with the assessment and plan as above except that the patient is rubella equivocal and would recommend for MMR vaccine after delivery. Patient having regular mild contractions with spontaneous rupture membranes. Patient to be started on Pitocin for augmentation of labor at this time Steven Kendall MD 10:33 AM 02/17/2020
[2021-02-16] MEDS: Lactated Ringers 1,000 ML IV SCH ×4 (10:20→17:17)
[2021-02-16] MEDS ORDERED: Bupivacaine 0.25% 10 ML SDV ONE (13:00)
[2021-02-16] MEDS ORDERED: diphenhydrAMINE 50 MG/ML SDV IVPUSH PRN (13:14)
[2021-02-16] MEDS ORDERED: ePHEDrine 50 MG/ML SDV IVPUSH PRN (13:14)
[2021-02-16] MEDS ORDERED: fentaNYL 100 MCG/2 ML SDV EPIDUR PRN (13:14)
[2021-02-16] MEDS ORDERED: Bupivacaine/fentaNYL/NS 100 ML Bag EPIDUR PRN (13:14)
--- NOTE | 2021-02-16 13:27 | PCM.PREANE ---
Preanesthetic Assessment - Procedure Proposed Procedure: Epidural - Anesthesia/Transfusion/Family Hx Anesthesia History: No Prior Anesthesia Family History of Anesthesia Reaction: No Transfusion History: No Prior Transfusion(s) Intubation History: Unknown - Review of Systems General: No Symptoms Pulmonary: No Symptoms (Asthma/Covid +: January 30, 2021) Cardiovascular: No Symptoms Gastrointestinal: No Symptoms (GERD), Constipation, Nausea, Vomiting Neurological: No Symptoms Other: Reports: None, Easy Bruising - Physical Assessment NPO Status Date: 02/16/21 NPO Status Time: 10:00 Vital Signs: Last Vital Signs Temp 36.9 C 02/16/21 07:25 Pulse 92 02/16/21 07:25 Resp 18 02/16/21 07:25 BP 116/62 02/16/21 07:25 Pulse Ox 97 02/16/21 07:25 Height: 1.7 m Weight: 96.388 kg ASA Class: 2 Mental Status: Alert & Oriented x3 Airway Class: Mallampati = 2 Dentition: Reports: Normal Dentition Thyro-Mental Finger Breadths: 3 Mouth Opening Finger Breadths: 3 ROM/Head Extension: Full Lungs: Clear to Auscultation, Normal Respiratory Effort Cardiovascular: Regular Rate, Regular Rhythm, No Murmurs - Lab Values: Laboratory Last Values WBC 8.45 K/mm3 (3.98-10.04) 02/16/21 08:06 RBC 3.97 M/mm3 (3.98-5.22) L 02/16/21 08:06 Hgb 11.2 gm/dl (11.2-15.7) 02/16/21 08:06 Hct 34.2 % (34.1-44.9) 02/16/21 08:06 MCV 86.1 fl (79.4-94.8) 02/16/21 08:06 MCH 28.2 pg (25.6-32.2) 02/16/21 08:06 MCHC 32.7 g/dl (32.2-35.5) 02/16/21 08:06 RDW Std Deviation 41.8 fL (36.4-46.3) 02/16/21 08:06 Plt Count 263 K/mm3 (182-369) 02/16/21 08:06 MPV 9.8 fl (9.4-12.3) 02/16/21 08:06 Neut % (Auto) 75.8 % (34.0-71.1) H 02/16/21 08:06 Lymph % (Auto) 15.7 % (19.3-51.7) L 02/16/21 08:06 [place] % (Auto) 7.2 % (4.7-12.5) 02/16/21 08:06 Eos % (Auto) 1.1 (0.7-5.8) 02/16/21 08:06 Baso % (Auto) 0.2 % (0.1-1.2) 02/16/21 08:06 Neut # (Auto) 6.40 K/mm3 (1.56-6.13) H 02/16/21 08:06 Lymph # (Auto) 1.33 K/mm3 (1.18-3.74) 02/16/21 08:06 Starke # (Auto) 0.61 K/mm3 (0.24-0.36) H 02/16/21 08:06 Eos # (Auto) 0.09 K/mm3 (0.04-0.36) 02/16/21 08:06 Baso # (Auto) 0.02 K/mm3 (0.01-0.08) 02/16/21 08:06 Membrane Rupture Positive H 02/16/21 06:40 Blood Type A POSITIVE 02/16/21 08:06 Gel Antibody Screen Negative 02/16/21 08:06 Above labs reviewed and noted and within acceptable ranges to proceed with epidural if desired. - Allergies Allergies/Adverse Reactions: Allergies Allergy/AdvReac Type Severity Reaction Status Date / Time azithromycin Allergy Severe Anaphylactic Verified 01/30/21 21:16 Shock Penicillins Allergy Intermediate Hives Verified 01/30/21 21:16 sulfamethoxazole Allergy Intermediate Hives Verified 01/30/21 21:16 [From Bactrim] trimethoprim [From Bactrim] Allergy Intermediate Hives Verified 01/30/21 21:16 - Anesthesia Plan Pre-Op Medication Ordered: None - Acknowledgements Anesthesia Type Planned: Epidural Pt an Appropriate Candidate for the Planned Anesthesia: Yes Alternatives and Risks of Anesthesia Discussed w Pt/Guardian: Yes Pt/Guardian Understands and Agrees with Anesthesia Plan: Yes PreAnesthesia Questionnaire - Past Health History Medical/Surgical History: Denies Medical/Surgical History HEENT History: Reports: Impaired Vision Respiratory History: Reports: Asthma, Other (See Below) Other Respiratory History: Asthma as a child, has not used an inhaler in years Gastrointestinal History: Reports: GERD 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 History: Psychiatric History: Reports: Anxiety, Depression, Other (See Below) Other Psychiatric History: anxiety/depression reports when around 14yr old, pt reports never using meds Endocrine/Metabolic History: Reports: Obesity/BMI 30+ - Past Surgical History HEENT Surgical History: Reports: None Respiratory Surgical History: Reports: None GI Surgical History: Reports: None Endocrine Surgical History: Reports: None - SUBSTANCE USE Tobacco Use Status *Q: Never Tobacco User Tobacco Use Within Last Twelve Months: No Recreational Drug Use History: No - HOME MEDS Home Medications: Home Meds Ondansetron [Zofran ODT] 4 mg PO Q6H PRN #30 tab.dis 01/30/21 [Rx] No122/Iron/Folic Acid [ Multi Tablet] 1 each PO DAILY 01/30/21 [History] - CURRENT (IN HOUSE) MEDS Current Meds: Current Medications Calcium Carbonate/Glycine (Calcium Carbonate 500 Mg Tab.Chew) 1,000 mg PO Q2H PRN PRN Reason: Indigestion Diphenhydramine HCl (Diphenhydramine 50 Mg/Ml Sdv) 25 mg IVPUSH Q6H PRN PRN Reason: pruritis Ephedrine Sulfate (Ephedrine 50 Mg/Ml Sdv) 5 mg IVPUSH ASDIRECTED PRN PRN Reason: Hypotension Fentanyl (Fentanyl 100 Mcg/2 Ml Sdv) 100 mcg EPIDUR Q3H PRN PRN Reason: Pain Fentanyl/Bupivacaine HCl (Bupivacaine/Fentanyl/Ns 100 Ml Bag) 100 ml EPIDUR ASDIRECTED PRN PRN Reason: Pain Lactated Ringer's (Ringers, Lactated) 1,000 mls @ 100 mls/hr IV ASDIRECTED MARIANELA Last Admin: 02/16/21 10:20 Dose: 100 mls/hr Documented by: Oxytocin/Lactated Ringer's (Pitocin In Lr 10 Units/1,000 Ml) 10 unit in 1,000 mls @ 12 mls/hr IV TITRATE MARIANELA; Protocol Last Admin: 02/16/21 10:23 Dose: 2 munits/min, 12 mls/hr Documented by: Oxytocin/Lactated Ringer's (Pitocin In Lr 10 Units/1,000 Ml) 10 unit in 1,000 mls @ 500 mls/hr IV .CONTINUOUS MARIANELA Nalbuphine HCl (Nalbuphine 10 Mg/1 Ml Vial) 10 mg IVPUSH Q2H PRN PRN Reason: Pain Ondansetron HCl (Ondansetron 4 Mg/2 Ml Sdv) 4 mg IVPUSH Q4H PRN PRN Reason: Nausea/Vomiting Sodium Chloride (Sodium Chloride 0.9% 10 Ml Syringe) 10 ml FLUSH ASDIRECTED PRN PRN Reason: Keep Vein Open
--- NOTE | 2021-02-16 14:28 | PCM.PNLD ---
Labor Progress Note - VS & Meds Vital Signs: Last Vital Signs Temp 36.9 C 02/16/21 07:25 Pulse 92 02/16/21 07:25 Resp 18 02/16/21 07:25 BP 116/62 02/16/21 07:25 Pulse Ox 97 02/16/21 07:25 Active Medications: Current Medications Calcium Carbonate/Glycine (Calcium Carbonate 500 Mg Tab.Chew) 1,000 mg PO Q2H PRN PRN Reason: Indigestion Diphenhydramine HCl (Diphenhydramine 50 Mg/Ml Sdv) 25 mg IVPUSH Q6H PRN PRN Reason: pruritis Ephedrine Sulfate (Ephedrine 50 Mg/Ml Sdv) 5 mg IVPUSH ASDIRECTED PRN PRN Reason: Hypotension Fentanyl (Fentanyl 100 Mcg/2 Ml Sdv) 100 mcg EPIDUR Q3H PRN PRN Reason: Pain Last Admin: 02/16/21 13:31 Dose: 100 mcg Documented by: Fentanyl/Bupivacaine HCl (Bupivacaine/Fentanyl/Ns 100 Ml Bag) 100 ml EPIDUR ASDIRECTED PRN PRN Reason: Pain Last Admin: 02/16/21 13:31 Dose: 100 ml Documented by: Lactated Ringer's (Ringers, Lactated) 1,000 mls @ 100 mls/hr IV ASDIRECTED MARIANELA Last Admin: 02/16/21 13:31 Dose: 100 mls/hr Documented by: Oxytocin/Lactated Ringer's (Pitocin In Lr 10 Units/1,000 Ml) 10 unit in 1,000 mls @ 12 mls/hr IV TITRATE MARIANELA; Protocol Last Admin: 02/16/21 10:23 Dose: 2 munits/min, 12 mls/hr Documented by: Oxytocin/Lactated Ringer's (Pitocin In Lr 10 Units/1,000 Ml) 10 unit in 1,000 mls @ 500 mls/hr IV .CONTINUOUS MARIANELA Nalbuphine HCl (Nalbuphine 10 Mg/1 Ml Vial) 10 mg IVPUSH Q2H PRN PRN Reason: Pain Ondansetron HCl (Ondansetron 4 Mg/2 Ml Sdv) 4 mg IVPUSH Q4H PRN PRN Reason: Nausea/Vomiting Sodium Chloride (Sodium Chloride 0.9% 10 Ml Syringe) 10 ml FLUSH ASDIRECTED PRN PRN Reason: Keep Vein Open - Uterine Contractions Uterine Monitoring Mode: External Tony Contraction Frequency (min): 2-3 Contraction Duration (sec): 45-60 Contraction Intensity: Strong Uterine Resting Tone: Soft - Monitoring Monitor Mode: Doppler/Auscultation Heart Rate (FHR) Baseline: 130 Heart Rate (FHR) Variability: Moderate (6-25 bpm) Accelerations: Present, 15x15 Decelerations: Late, Intermittent (<50% x 20 min) Strip Review: Category II - Vaginal Exam Dilation (cm): 5 Effacement (Percent): 90 Station: -2 Cervical Position: Anterior Sterile Vaginal Exam Performed By: Steven Kendall - Labor Progress (Free Text) Labor Progress: Jina Kaplan is a 20-year-old at 37 weeks 2 days with spontaneous rupture membranes Patient received epidural for anesthesia and is feeling more comfortable Patient making progress on Pitocin for augmentation of labor Continue Pitocin for augmentation of labor Routine vitals Patient may have small amount of regular diet as tolerated Continuous monitoring Anticipate vaginal delivery unless otherwise indicated Steven Kendall MD 2:28 PM 02/16/2021
[2021-02-16] MEDS ORDERED: Lidocaine 1% 50 ML MDV ONE (22:15)
--- NOTE | 2021-02-16 23:00 | PCM.DEL ---
L & D Note - General Info Date of Service: 02/16/21 Mother's Due Date: 03/07/21 - Delivery Note Labor: Spontaneous, Augmented by Oxytocin Delivery Outcome: Livebirth Infant Delivery Method: Spontaneous Vaginal Delivery-Single Presentation: Left Occiput Anterior (DEX) Nuchal Cord: None Prep: Povidone-Iodine (Betadine Anesthesia Type: Epidural Anesthetic: Lidocaine (Xylocaine) 1% Plain Local Anesthetic Volume: 5cc Amniotic Fluid Description: Clear Episiotomy Type: None Laceration: 1st Degree (midline perineal and left posterior hymenal ring laceration, repaired with 3-0 Vicryl with figure of eight sutures), Labial (left medial labial, repaired with 4-0 Vicryl) Suture type: Vicryl Suture size: 3-0 Placenta: Intact, Spontaneous Cord: 3 Vessels Estimated Blood Loss: 100 Resuscitation Needed: Yes : Suctioned, Bulb Syringe, Stimulated, Warmed, [place] Used Provider: Rosette Ellington Score 1 min: 7 Score 5 min: 8 Second Stage Interventions: Reports: Pushing Effectively, Pushing, Pulls Own Legs Back, Pushing, Stirrups/Leg Supports Delivery Comments (Free Text/Narrative):: Stage I: Jina Kaplan was admitted for spontaneous rupture of membranes with large gush of clear fluid at home. On admission her cervix was dilated to 3 cm. She was GBS negative. She was having mild irregular contractions on admission and she was started on Pitocin for augmentation of labor. She was given an epidural for anesthesia. During labor she was having some occasional late decelerations that were treated with positional changes and stopping the Pitocin to allow baby to recover. The Pitocin was then restarted for augmentation of labor. Patient had scalp electrode placed due to difficulty of monitoring heart rate. She progressed to complete and pushing. During pushing the scalp electrode was not picking up the heart rate and this was removed and heart rate was monitored with Doppler auscultation. Stage II: On 02/16/2021 she had a normal vaginal delivery of a live female at 22:00. Apgars of 7 & 8. Weight of 2860 g (6 lbs 4.9 oz). Length of 18.5 inches. There was no nuchal cord. Infant was delivered in DEX position. The cord was doubly clamped and cut by father of the infant at approximately 60 seconds of life. was placed on mother's abdomen. Stage III: She had a spontaneous delivery of an intact placenta in [place] presentation. Three vessel cord. She was given pitocin and fundal massage. She had a first-degree midline perineal laceration and first-degree left posterior hymenal ring laceration that were repaired with 3-0 Vicryl using [id number] sutures. She had a left medial labial laceration that was repaired with 4-0 Vicryl in a running fashion. During repair of the left medial labial laceration she had 1% lidocaine injected with 5 mL injected into the skin for additional anesthesia. She had an additional laceration on the inferior portion of the left labia that was hemostatic and not repaired. Mom and baby were stable to recovery. EBL of 100 mL. Steven Kendall MD 10:59 PM 02/16/2021 - General Info Date of Service: 02/16/21 - Patient Data Vitals - Most Recent: Last Vital Signs Temp 36.9 C 02/16/21 07:25 Pulse 92 02/16/21 07:25 Resp 18 02/16/21 07:25 BP 116/62 02/16/21 07:25 Pulse Ox 97 02/16/21 07:25 Weight - Most Recent: 96.388 kg I&O - Last 24 Hours: Intake & Output 02/16/21 02/16/21 02/16/21 06:59 14:59 22:59 Output Total 900 Balance -900 Lab Results Last 24 Hours: Laboratory Results - last 24 hr 02/16/21 02/16/21 02/16/21 Range/Units 06:40 08:06 08:06 WBC 8.45 (3.98-10.04) K/mm3 RBC 3.97 L (3.98-5.22) M/mm3 Hgb 11.2 (11.2-15.7) gm/dl Hct 34.2 (34.1-44.9) % MCV 86.1 (79.4-94.8) fl MCH 28.2 (25.6-32.2) pg MCHC 32.7 (32.2-35.5) g/dl RDW Std Deviation 41.8 (36.4-46.3) fL Plt Count 263 (182-369) K/mm3 MPV 9.8 (9.4-12.3) fl Neut % (Auto) 75.8 H (34.0-71.1) % Lymph % (Auto) 15.7 L (19.3-51.7) % Ada % (Auto) 7.2 (4.7-12.5) % Eos % (Auto) 1.1 (0.7-5.8) Baso % (Auto) 0.2 (0.1-1.2) % Neut # (Auto) 6.40 H (1.56-6.13) K/mm3 Lymph # (Auto) 1.33 (1.18-3.74) K/mm3 Ada # (Auto) 0.61 H (0.24-0.36) K/mm3 Eos # (Auto) 0.09 (0.04-0.36) K/mm3 Baso # (Auto) 0.02 (0.01-0.08) K/mm3 Membrane Rupture Positive H Blood Type A POSITIVE Gel Antibody Screen Negative Med Orders - Current: Current Medications Calcium Carbonate/Glycine (Calcium Carbonate 500 Mg Tab.Chew) 1,000 mg PO Q2H PRN PRN Reason: Indigestion Diphenhydramine HCl (Diphenhydramine 50 Mg/Ml Sdv) 25 mg IVPUSH Q6H PRN PRN Reason: pruritis Ephedrine Sulfate (Ephedrine 50 Mg/Ml Sdv) 5 mg IVPUSH ASDIRECTED PRN PRN Reason: Hypotension Fentanyl (Fentanyl 100 Mcg/2 Ml Sdv) 100 mcg EPIDUR Q3H PRN PRN Reason: Pain Last Admin: 02/16/21 13:31 Dose: 100 mcg Documented by: Fentanyl/Bupivacaine HCl (Bupivacaine/Fentanyl/Ns 100 Ml Bag) 100 ml EPIDUR ASDIRECTED PRN PRN Reason: Pain Last Admin: 02/16/21 13:31 Dose: 100 ml Documented by: Lactated Ringer's (Ringers, Lactated) 1,000 mls @ 100 mls/hr IV ASDIRECTED MARIANELA Last Admin: 02/16/21 17:17 Dose: 100 mls/hr Documented by: Oxytocin/Lactated Ringer's (Pitocin In Lr 10 Units/1,000 Ml) 10 unit in 1,000 mls @ 12 mls/hr IV TITRATE MARIANELA; Protocol Last Titration: 02/16/21 16:53 Dose: 2 munits/min, 12 mls/hr Documented by: Oxytocin/Lactated Ringer's (Pitocin In Lr 10 Units/1,000 Ml) 10 unit in 1,000 mls @ 500 mls/hr IV .CONTINUOUS MARIANELA Nalbuphine HCl (Nalbuphine 10 Mg/1 Ml Vial) 10 mg IVPUSH Q2H PRN PRN Reason: Pain Ondansetron HCl (Ondansetron 4 Mg/2 Ml Sdv) 4 mg IVPUSH Q4H PRN PRN Reason: Nausea/Vomiting Sodium Chloride (Sodium Chloride 0.9% 10 Ml Syringe) 10 ml FLUSH ASDIRECTED PRN PRN Reason: Keep Vein Open Discontinued Medications Lidocaine HCl (Lidocaine 1% 50 Ml Mdv) Confirm Administered Dose 50 ml .ROUTE .[place] ONE Stop: 02/16/21 22:16 - Exam Urinary Catheter Total Time: 0Days 2Hours - Problem List & Annotations (1) 37 weeks gestation of SNOMED Code(s): 44524779 Code(s): Z3A.37 - 37 WEEKS GESTATION OF Status: Acute Priority: High Current Visit: Yes (2) Vaginal delivery SNOMED Code(s): 446345072 Code(s): O80 - ENCOUNTER FOR FULL-TERM UNCOMPLICATED DELIVERY Status: Acute Current Visit: Yes (3) First degree perineal laceration during delivery SNOMED Code(s): 108657589 Code(s): O70.0 - FIRST DEGREE PERINEAL LACERATION DURING DELIVERY Status: Acute Current Visit: Yes (4) Obstetric labial laceration, delivered, current hospitalization SNOMED Code(s): 186053319, 576677810, 173713240 Code(s): O70.0 - FIRST DEGREE PERINEAL LACERATION DURING DELIVERY Status: Acute Current Visit: Yes - Problem List Review Problem List Initiated/Reviewed/Updated: Yes - My Orders Last 24 Hours: My Active Orders 02/16/21 06:28 Vital Signs [RC] PER UNIT ROUTINE Resuscitation Status Routine 02/16/21 Breakfast Regular Diet [DIET] 02/16/21 07:54 Patient Status [ADT] Routine Activity as Tolerated [RC] PFP Communication Order [RC] ASDIRECTED Notify Provider [RC] PFP Notify Provider [RC] PRN Urinary Catheter Assessment [RC] ASDIRECTED Calcium Carbonate [Tums] 1,000 mg PO Q2H PRN Nalbuphine [Nubain] 10 mg IVPUSH Q2H PRN Ondansetron [Zofran] 4 mg IVPUSH Q4H PRN Sodium Chloride 0.9% [Saline Flush] 10 ml FLUSH ASDIRECTED PRN Electronic Heart Tones Ext w TOCO [WOMSER] Routine Electronic Heart Tones Internal [WOMSER] Per Unit Routine Peripheral IV Insertion Adult [OM.PC] Routine 02/16/21 07:55 Peripheral IV Care [RC] . DIRECTED Pump Management, Intrathecal [RC] ASDIRECTED 02/16/21 08:00 Lactated Ringers [Ringers, Lactated] 1,000 ml IV ASDIRECTED Oxytocin/Lactated Ringers [Pitocin in LR 10 Units/1,000 ML] 10 unit in 1,000 ml IV .CONTINUOUS Oxytocin/Lactated Ringers [Pitocin in LR 10 Units/1,000 ML] 10 unit in 1,000 ml IV TITRATE 02/16/21 08:06 RAPID PLASMA REAGIN,RPR [CHEM] Routine 02/16/21 22:44 Patient Status Manage Transfer [TRANSFER] Routine - Plan Plan:: Jina Kaplan is a 20-year-old now -0-0-1 female status post , PPD #0 with complicated by history of COVID-19 infection on 01/30/2021 and has recovered completely at this time and rubella equivocal status Admit to inpatient following normal spontaneous vaginal delivery Continue Pitocin per unit protocol following delivery of placenta and lactated Ringer's until tolerating regular diet Regular diet Vitals per unit routine Ibuprofen and Tylenol for pain control Assist with breast-feeding as needed Continue to monitor lochia Recommend for patient to be offered MMR vaccine after delivery due to rubella equivocal status Anticipate discharge home on day #2 Steven Kendall MD 10:59 PM 02/16/2021
[2021-02-16] MEDS ORDERED: Measles, Mumps & Rubella Vaccine 0.5 ML SDV SUBCUT ONE (23:10)
[2021-02-16] MEDS ORDERED: Acetaminophen 325 MG Tab PO PRN (23:10)
[2021-02-16] MEDS ORDERED: Hydrocortisone Acetate 25 MG Supp RECTAL PRN (23:10)
[2021-02-16] MEDS ORDERED: Witch Hazel Medicated Pads 40/Jar TOP PRN (23:10)
[2021-02-16] MEDS ORDERED: Magnesium Hydroxide 400 MG/5 ML Susp 30 ML Cup PO PRN (23:10)
[2021-02-16] MEDS ORDERED: Benzocaine/Menthol 20%-0.5% Spray 78 GM Cannister TOP PRN (23:10)
[2021-02-17] MEDS: Ibuprofen 600 MG Tab PO PRN (00:20)
[2021-02-17] MEDS: Docusate Sodium 100 MG Cap PO PRN ×2 (00:21→17:45)
--- NOTE | 2021-02-17 11:20 | PCM.SN.2 ---
- Free Text/Narrative Note: Post Progress Note PPD #1 Subjective: Doing well overall. Ambulating without difficulty. Lochia minimal. Voiding without difficulty. Tolerating regular diet without nausea or vomiting. Pain controlled with oral medications. Breast-feeding and pumping breastmilk with minimal difficulty. Objective: Vitals: Vital Signs - 24 hr 02/17/21 02/17/21 01:10 03:18 Temperature 36.6 C 36.3 C Pulse, 88 78 Peripheral Respiratory 14 16 Rate Blood Pressure 109/62 117/80 O2 Sat by Pulse 98 97 Oximetry Physical Exam General: Alert and oriented, no acute distress Lungs: Clear to auscultation bilaterally Heart: Regular rate and rhythm Abdomen: Soft, minimal appropriate tenderness, non-distended, fundus midline, nontender, and 1 fingerbreadth below the umbilicus Extremities: No edema in bilateral lower extremities, no calf tenderness bilaterally ASSESSMENT: 20-year-old female -0-0-1 s/p normal vaginal delivery PPD #, complicated by rubella equivocal status PLAN: Doing well Breast-feeding and pumping breastmilk with minimal difficulty. Assist as needed Lochia minimal. Continue to monitor for appropriate lochia. Continue routine care Recommend to offer MMR vaccine prior to discharge Anticipate discharge home tomorrow Steven Kendall MD 11:20 AM 02/17/2021
[2021-02-17] MEDS: Prenatal Multivitamin with Calcium/Folic Acid/Iron Tab PO SCH ×2 (17:29→17:40)
[2021-02-18] MEDS: Ibuprofen 600 MG Tab PO PRN (00:48)
--- NOTE | 2021-02-18 09:24 | PCM.SN.2 ---
- Free Text/Narrative Note: Post Progress Note PPD #2 Subjective: Doing well overall. Ambulating without difficulty. Lochia minimal. Voiding without difficulty. Tolerating regular diet without nausea or vomiting. Pain controlled with oral medications. Reports that she is having some mild cramping pain in the uterus. She has not needed significant amounts of medication but has taken several doses of medication that has helped with her pain. Breast- feeding, pumping breastmilk and using formula supplementation with minimal diff iculty. Objective: Vitals: Vital Signs - 24 hr 02/17/21 02/18/21 16:11 07:00 Temperature 36.4 C 36.4 C Pulse, 66 59 L Peripheral Respiratory 16 16 Rate Blood Pressure 116/100 H 94/41 L O2 Sat by Pulse 100 95 Oximetry Physical Exam General: Alert and oriented, no acute distress Lungs: Clear to auscultation bilaterally Heart: Regular rate and rhythm Abdomen: Soft, minimal appropriate tenderness, non-distended, fundus midline, nontender, and 2 fingerbreadths below the umbilicus Extremities: No edema in bilateral lower extremities, no calf tenderness bilaterally Laboratory Results - last 24 hr 02/16/21 Range/Units 08:06 RPR Non-reactive (NONREACTIVE) ASSESSMENT: 20-year-old female -0-0-1 s/p normal vaginal delivery PPD #2, complicated by rubella equivocal status PLAN: Doing well Breast-feeding, pumping breastmilk and supplementing with formula with minimal difficulty. Assist as needed Lochia minimal. Continue to monitor for appropriate lochia. Continue routine care Recommend to offer MMR vaccine prior to discharge Discharge home today Steven Kendall MD 9:23 AM 02/18/2021
--- NOTE | 2021-02-18 09:27 | PCM.DCSUM1 ---
Discharge Summary - Hospital Course Free Text/Narrative:: - General Info Date of Service: 02/16/21 Mother's Due Date: 03/07/21 - Delivery Note Labor: Spontaneous, Augmented by Oxytocin Delivery Outcome: Livebirth Infant Delivery Method: Spontaneous Vaginal Delivery-Single Presentation: Left Occiput Anterior (DEX) Nuchal Cord: None Prep: Povidone-Iodine (Betadine Anesthesia Type: Epidural Anesthetic: Lidocaine (Xylocaine) 1% Plain Local Anesthetic Volume: 5cc Amniotic Fluid Description: Clear Episiotomy Type: None Laceration: 1st Degree (midline perineal and left posterior hymenal ring laceration, repaired with 3-0 Vicryl with figure of eight sutures), Labial (left medial labial, repaired with 4-0 Vicryl) Suture type: Vicryl Suture size: 3-0 Placenta: Intact, Spontaneous Cord: 3 Vessels Estimated Blood Loss: 100 Resuscitation Needed: Yes [place]: Suctioned, Bulb Syringe, Stimulated, Warmed, [place] Used Provider: Rosette Ellington Score 1 min: 7 Score 5 min: 8 Second Stage Interventions: Reports: Pushing Effectively, Pushing, Pulls Own Legs Back, Pushing, Stirrups/Leg Supports Delivery Comments (Free Text/Narrative):: Stage I: Jina Kaplan was admitted for spontaneous rupture of membranes with large gush of clear fluid at home. On admission her cervix was dilated to 3 cm. She was GBS negative. She was having mild irregular contractions on admission and she was started on Pitocin for augmentation of labor. She was given an epidural for anesthesia. During labor she was having some occasional late decelerations that were treated with positional changes and stopping the Pitocin to allow baby to recover. The Pitocin was then restarted for augmentation of labor. Patient had scalp electrode placed due to difficulty of monitoring heart rate. She progressed to complete and pushing. During pushing the scalp electrode was not picking up the heart rate and this was removed and heart rate was monitored with Doppler auscultation. Stage II: On 02/16/2021 she had a normal vaginal delivery of a live female at 22:00. Apgars of 7 & 8. Weight of 2860 g (6 lbs 4.9 oz). Length of 18.5 inches. There was no nuchal cord. Infant was delivered in DEX position. The cord was doubly clamped and cut by father of the at approximately 60 seconds of life. Infant was placed on mother's abdomen. Stage III: She had a spontaneous delivery of an intact placenta in [place] presentation. Three vessel cord. She was given pitocin and fundal massage. She had a first-degree midline perineal laceration and first-degree left posterior hymenal ring laceration that were repaired with 3-0 Vicryl using [id number] sutures. She had a left medial labial laceration that was repaired with 4-0 Vicryl in a running fashion. During repair of the left medial labial laceration she had 1% lidocaine injected with 5 mL injected into the skin for additional anesthesia. She had an additional laceration on the inferior portion of the left labia that was hemostatic and not repaired. Mom and baby were stable to recovery. EBL of 100 mL. Diagnosis: Stroke: No - Discharge Data Discharge Date: 02/18/21 Discharge Disposition: Home, Self-Care 01 Condition: Good - Referral to Home Health Primary Care Physician: Rosette Ellington MD - Discharge Diagnosis/Problem(s) (1) 37 weeks gestation of SNOMED Code(s): 28022779 ICD Code: Z3A.37 - 37 WEEKS GESTATION OF Status: Acute Priority: High Current Visit: Yes (2) Vaginal delivery SNOMED Code(s): 877628634 ICD Code: O80 - ENCOUNTER FOR FULL-TERM UNCOMPLICATED DELIVERY Status: Acute Current Visit: Yes (3) First degree perineal laceration during delivery SNOMED Code(s): 023152737 ICD Code: O70.0 - FIRST DEGREE PERINEAL LACERATION DURING DELIVERY Status: Acute Current Visit: Yes (4) Obstetric labial laceration, delivered, current hospitalization SNOMED Code(s): 508037046, 236696596, 154299713 ICD Code: O70.0 - FIRST DEGREE PERINEAL LACERATION DURING DELIVERY Status: Acute Current Visit: Yes - Patient Summary/Data Complications: None Consults: None Hospital Course: Jina Kaplan was admitted for spontaneous rupture of membranes with large gush of clear fluid at home. On admission her cervix was dilated to 3 cm. She was GBS negative. She was given pitocin for augmentation due to irregular uterine contraction. She was given an epidural for anesthesia. Patient had a scalp electrode placed due to difficulty of monitoring heart rate. She progressed to complete and began pushing. During pushing the scalp electrode was not picking up heart rate and was removed and heart rate was monitored with Doppler auscultation. On 02/16/2021 she had a normal vaginal delivery of a live female at 22:00. Apgars of 7 and 8. Weight of 2860 g (6 pounds 4.9 ounces). Her course was uneventful. Her pain was well controlled and she had minimal lochia. She was ambulating, tolerating a regular diet and voiding normally. She was breast-feeding, pumping breastmilk and using formula supplementation with minimal difficulty. She was afebrile and her hematocrit was 34.2 on admission. She desired to be discharged home on the morning of PPD #2. Her blood type is A+. - Patient Instructions Diet: Regular Diet as Tolerated Activity: Apply Ice, As Tolerated Activity, Other: Nothing in the vagina for 6 weeks Driving: May Drive Today Showering/Bathing: May Shower Notify Provider of: Fever, Increased Pain, Swelling and Redness, Drainage, Nausea and/or Vomiting Other/Special Instructions: Please contact your physician's office if you have heavy vaginal bleeding enough to soak a pad in less than an hour for several hours. Monitor for any signs of an infection in the breasts with severe pain or redness of the breast. - Discharge Plan *PRESCRIPTION DRUG MONITORING PROGRAM REVIEWED*: Not Applicable *COPY OF PRESCRIPTION DRUG MONITORING REPORT IN PATIENT MELISSA: Not Applicable Home Medications: Home Meds Ondansetron [Zofran ODT] 4 mg PO Q6H PRN #30 tab.dis 01/30/21 [Rx] No122/Iron/Folic Acid [ Multi Tablet] 1 each PO DAILY 01/30/21 [History] Acetaminophen [Tylenol] 650 mg PO Q6H PRN tablet 02/18/21 [Rx] Benzocaine/Menthol [Dermoplast Pain Relief 20%-0.5% [place]] 1 spray TOP ASDIRECTED PRN canister 02/18/21 [Rx] Docusate Sodium [Colace] 100 mg PO BID PRN cap 02/18/21 [Rx] Hydrocortisone Acetate [Anucort-HC] 25 mg RECTAL BID PRN supp 02/18/21 [Rx] Ibuprofen [Motrin] 600 mg PO Q6H PRN tablet 02/18/21 [Rx] trevon Greer [Tucks] 1 pad TOP ASDIRECTED PRN pad 02/18/21 [Rx] Patient Handouts: Care of a Perineal Tear, Care After Vaginal Delivery Referrals: Rosette Ellington MD [Primary Care Provider] - (Follow-up in 2 to 6 weeks for routine visit or earlier as needed.) - Discharge Summary/Plan Comment DC Time >30 min.: No Total # of Minutes for Discharge Time: 15 minutes - Patient Data Vitals - Most Recent: Last Vital Signs Temp 36.4 C 02/18/21 07:00 Pulse 59 L 02/18/21 07:00 Resp 16 02/18/21 07:00 BP 94/41 L 02/18/21 07:00 Pulse Ox 95 02/18/21 07:00 Weight - Most Recent: 96.388 kg I&O - Last 24 hours: Intake & Output 02/17/21 02/18/21 02/18/21 22:59 06:59 14:59 Intake Total 0 Balance 0 Lab Results - Last 24 hrs: Laboratory Results - last 24 hr 02/16/21 Range/Units 08:06 RPR Non-reactive (NONREACTIVE) Med Orders - Current: Current Medications Acetaminophen (Acetaminophen 325 Mg Tab) 650 mg PO Q6H PRN PRN Reason: mild pain or fever Benzocaine/Menthol (Benzocaine/Menthol 20%-0.5% [place] 78 Gm Cannister) 0 gm TOP ASDIRECTED PRN PRN Reason: Perineal Comfort Measure Last Admin: 02/17/21 00:22 Dose: 1 applic Documented by: Docusate Sodium (Docusate Sodium 100 Mg Cap) 100 mg PO BID PRN PRN Reason: Constipation Last Admin: 02/17/21 17:45 Dose: 100 mg Documented by: Hydrocortisone Acetate (Hydrocortisone Acetate 25 Mg Supp) 25 mg RECTAL BID PRN PRN Reason: Hemorrhoid pain Oxytocin/Lactated Ringer's (Pitocin In Lr 10 Units/1,000 Ml) 10 unit in 1,000 mls @ 100 mls/hr IV TITRATE MARIANELA; Protocol Ibuprofen (Ibuprofen 600 Mg Tab) 600 mg PO Q6H PRN PRN Reason: Mild pain or fever Last Admin: 02/18/21 00:48 Dose: 600 mg Documented by: Magnesium Hydroxide (Magnesium Hydroxide 400 Mg/5 Ml Susp 30 Ml Cup) 30 ml PO BEDTIME PRN PRN Reason: Constipation Prenat Multivit/[place]/Iron/Folic Ac ( Multivitamin With Calcium/Folic Acid/Iron Tab) 1 each PO DAILY MARIANELA Last Admin: 02/17/21 17:40 Dose: 1 each Documented by: Trevon Greer (Trevon Greer Medicated Pads 40/Jar) 1 pad TOP ASDIRECTED PRN PRN Reason: Perineal Comfort Measure Last Admin: 02/17/21 00:21 Dose: 1 applic Documented by: Discontinued Medications Calcium Carbonate/Glycine (Calcium Carbonate 500 Mg Tab.Chew) 1,000 mg PO Q2H PRN PRN Reason: Indigestion Diphenhydramine HCl (Diphenhydramine 50 Mg/Ml Sdv) 25 mg IVPUSH Q6H PRN PRN Reason: pruritis Ephedrine Sulfate (Ephedrine 50 Mg/Ml Sdv) 5 mg IVPUSH ASDIRECTED PRN PRN Reason: Hypotension Fentanyl (Fentanyl 100 Mcg/2 Ml Sdv) 100 mcg EPIDUR Q3H PRN PRN Reason: Pain Last Admin: 02/16/21 13:31 Dose: 100 mcg Documented by: Fentanyl/Bupivacaine HCl (Bupivacaine/Fentanyl/Ns 100 Ml Bag) 100 ml EPIDUR ASDIRECTED PRN PRN Reason: Pain Last Admin: 02/16/21 13:31 Dose: 100 ml Documented by: Lactated Ringer's (Ringers, Lactated) 1,000 mls @ 100 mls/hr IV ASDIRECTED MARIANELA Last Admin: 02/16/21 17:17 Dose: 100 mls/hr Documented by: Oxytocin/Lactated Ringer's (Pitocin In Lr 10 Units/1,000 Ml) 10 unit in 1,000 mls @ 12 mls/hr IV TITRATE MARIANELA; Protocol Last Titration: 02/16/21 16:53 Dose: 2 munits/min, 12 mls/hr Documented by: Oxytocin/Lactated Ringer's (Pitocin In Lr 10 Units/1,000 Ml) 10 unit in 1,000 mls @ 500 mls/hr IV .CONTINUOUS MARIANELA Lidocaine HCl (Lidocaine 1% 50 Ml Mdv) Confirm Administered Dose 50 ml .ROUTE .[facility] ONE Stop: 02/16/21 22:16 Last Admin: 02/17/21 14:02 Dose: Not Given Documented by: Measles/Mumps/Rubella Vaccine Live (Measles, Mumps & Rubella Vaccine 0.5 Ml Sdv) 0.5 ml SUBCUT .ONCE ONE Stop: 02/16/21 23:11 Nalbuphine HCl (Nalbuphine 10 Mg/1 Ml Vial) 10 mg IVPUSH Q2H PRN PRN Reason: Pain Ondansetron HCl (Ondansetron 4 Mg/2 Ml Sdv) 4 mg IVPUSH Q4H PRN PRN Reason: Nausea/Vomiting Sodium Chloride (Sodium Chloride 0.9% 10 Ml Syringe) 10 ml FLUSH ASDIRECTED PRN PRN Reason: Keep Vein Open
[2021-02-18] MEDS ORDERED: Measles, Mumps & Rubella Vaccine 0.5 ML SDV SUBCUT ONE (10:26)
[2021-02-18] MEDS: Prenatal Multivitamin with Calcium/Folic Acid/Iron Tab PO SCH (10:26)
== END 2021-02-18 10:35 | disposition home or self-care (01) | DRG 560 ==
LOC: JD.OBCHECK 06:21 → JD.OB 06:21 → UNDOADMOB 07:54 → JD.OB 07:54 → JD.OBCHECK 07:54 → OBSVTOIN 10:00 → INTOOBSV 10:00 → OBSVTOIN 22:00 → JD.OB 22:00
PROVIDERS: ADMIT Obstetrics & Gynecology; ATTEND Obstetrics & Gynecology
PROC: 10E0XZZ Delivery of Products of Conception, External Approach (ICD-10-PCS; principal; 2021-02-16)
PROC: 0HQ9XZZ Repair Perineum Skin, External Approach (ICD-10-PCS; 2021-02-16)
PROC: 0UQKXZZ Repair Hymen, External Approach (ICD-10-PCS; 2021-02-16)
PROC: 3E0R3BZ Introduction of Anesthetic Agent into Spinal Canal, Percutaneous Approach (ICD-10-PCS; 2021-02-16)
PROC: 00HU33Z Insertion of Infusion Device into Spinal Canal, Percutaneous Approach (ICD-10-PCS; 2021-02-16)
PROC: 3E0234Z Introduction of Serum, Toxoid and Vaccine into Muscle, Percutaneous Approach (ICD-10-PCS; 2021-02-18)
DX: O99.52 Diseases of the respiratory system complicating childbirth (principal); O70.0 First degree perineal laceration during delivery; Z37.0 Single live birth; J45.909 Unspecified asthma, uncomplicated; O99.214 Obesity complicating childbirth; O99.62 Diseases of the digestive system complicating childbirth; K21.9 Gastro-esophageal reflux disease without esophagitis; Z3A.37 37 weeks gestation of pregnancy; Z88.1 Allergy status to other antibiotic agents; Z88.0 Allergy status to penicillin; Z88.2 Allergy status to sulfonamides; Z23 Encounter for immunization
CPT/HCPCS: 01967; 36415; 51702; 59025; 59409; 84112; 85025; 86592; 86850; 86900; 86901; 90471; 90707; A9270-GY; J2590; J3010; J3490; J7120

== ENCOUNTER 2021-05-03 20:14 | Emergency (ER) | payer OTHER, BC ==
[2021-05-03] MEDS ORDERED: Bupivacaine 0.5% 10 ML SDV INJECT ONE (21:20)
[2021-05-03] MEDS ORDERED: Lidocaine 1% 10 ML MDV INJECT ONE (21:21)
[2021-05-03] MEDS ORDERED: Diphtheria,Pertussis(Acell),Tetanus Vaccine 0.5 ML Syringe IM ONE (21:36)
[2021-05-03] MEDS ORDERED: Cephalexin 500 MG Cap PO ONE (21:38)
== END 2021-05-03 22:45 | disposition home or self-care (01) ==
LOC: JD.ED 20:14
DX: S62.635B Displaced fracture of distal phalanx of left ring finger, initial encounter for open fracture (principal); J45.909 Unspecified asthma, uncomplicated; K21.9 Gastro-esophageal reflux disease without esophagitis; E66.9 Obesity, unspecified; Z88.1 Allergy status to other antibiotic agents; Z88.0 Allergy status to penicillin; Z23 Encounter for immunization; Z68.30 Body mass index [BMI] 30.0-30.9, adult; W22.09XA Striking against other stationary object, initial encounter
CPT/HCPCS: 12002; 73140-26-F3; 73140-F3; 90471; 90715; 99283-25; A9270-GY; J3490